=== PATIENT | male | born 1955 | race Caucasian/White ===

== ENCOUNTER → 2023-08-23 13:27 | Outpatient (REF) | payer MEDICARE, SELFPAY | LOC: HWRAD 13:27 | PROVIDERS: ATTENDING PHYSICIAN Nurse Practitioner Adult Health | DX: M54.2 Cervicalgia (principal); M54.50 Low back pain, unspecified; S23.9XXA Sprain of unspecified parts of thorax, initial encounter | CPT/HCPCS: 72040; 72072; 72110 ==

== ENCOUNTER 2024-07-24 09:57 | Emergency (ER) | payer MEDICARE, SELFPAY ==
--- NOTE | 2024-07-24 10:19 | ED.GENMED ---
History of Present Illness
General
Chief Complaint: Abdominal Pain
Source: patient
Exam Limitations: none
Time Seen by Provider: 07/24/24 10:10
Nursing documentation reviewed up to this point in time: agreed with
History of Present Illness
History of Present Illness:
Patient is a 68 male who presents to the ER for evaluation. Patient was awoken this morning at 5 AM with left-sided flank pain which radiates to his left abdomen. He has a history of chronic back issues but this feels different. He was nauseous
and did vomit twice with this. He does feel little constipated. He has moved recently but not as much as normal. He has not take anything for pain. He reports pain is mostly constant does become more intense at times. He denies any radiation to
his groin or testicle. Denies any hematuria
Past History
Past History
ED Past Medical History: Hypercholesterolemia (Borderline) and Other (Anxiety, elevated hemoglobin A1c)
ED Past Surgical History: Orthopedic
Social History
Tobacco: Non-smoker
Employment: Employed
Family History
Family History: CAD
Review of Systems
Review of Systems
Allergies reviewed?: Yes
All Other Systems: ROS reviewed and negative except as documented in HPI and ROS
Constitutional: Reports no symptoms
Respiratory: Reports no symptoms
Cardiac: Reports no symptoms
ABD/GI: Reports abdominal pain, nausea, vomiting and constipated; Denies diarrhea
: Reports no symptoms
Musculoskeletal: Reports back pain
Skin: Reports no symptoms
Neurological: Reports no symptoms
Psychiatric: Reports no symptoms
Phy Exam
General Physical Exam
General Presentation: no apparent distress
General age: appears stated age
General Skin: warm and dry
General Habitus: normal
General Mental: alert
General Hydration: appears well hydrated
Cardiovascular Exam
Cardiovascular Exam: regular rate/rhythm, no murmur and normal peripheral pulses
Pulmonary Exam
Pulmonary Exam: lungs clear and no respiratory distress
Gastrointestinal Exam
Gastrointestinal Exam: normal bowel sounds, non tender and soft
Neurological Exam
Neurological Exam: alert and oriented x3
Musculoskeletal Exam
Musculoskeletal Exam: full ROM
Skin Exam
Skin Exam: normal color and warm/dry
Psychiatric Exam
Psychiatric Exam: normal mood/affect
Course
Orders/Labs/Results
Orders:
Orders
07/24/24 10:18
CT Abd/pel Without Iv Or Oral Urgent
Comment:
Reason For Exam: left flank pain
IV Insert/Care/Rem.- Treatment PRN
0.9% Sodium Chloride 1000 ml [Nss] 1,000 ml IV BOLUS
Ketorolac [Toradol] 15 mg IV NOW STA
07/24/24 10:20
Vital Signs- Treatment ONCE
Frequency: Once
07/24/24 10:33
Complete Blood Count/With Diff Urgent
Comprehensive Metabolic Panel Urgent
Lipase Urgent
07/24/24 10:59
HYDROmorphone [Dilaudid] 1 mg .ROUTE .STK-MED ONE
HYDROmorphone [Dilaudid] 1 mg IV NOW STA
07/24/24 11:35
Urinalysis Reflex To Culture Urgent
Date Specimen was Collected: 07/24/24
Time Specimen was Collected: 11:27
Urine Microscopic Reflex Cult Urgent
Urine Culture Urgent
HANNY Source: U
Specimen Description:
Date Specimen was Collected: 07/24/24
Time Specimen was Collected: 11:27
Abnormal Lab Results
07/24/24 07/24/24
10:33 11:35
MCH 32.6 H pg
(27.0-31.0)
Absolute Lymphs (auto) 0.9 L 10^3/uL
(1.2-3.4)
Neutrophils % 78.9 H %
(42.2-75.2)
Lymphocytes % 15.1 L %
(20.5-51.1)
Creatinine 1.4 H mg/dL
(0.7-1.3)
Glucose 150 H mg/dl
(70-99)
Total Bilirubin 1.5 H mg/dl
(0.2-1.3)
Ur Occult Blood Reflex 4+ A
(Negative)
Leukocyte Esterase Rfl 1+ A
(Negative)
Urine RBC >100 A /HPF
(0-2)
Urine Albumin (Reflex) 2+ A
(Neg - Trace)
07/24/24 10:33
07/24/24 10:33
Vital Signs
Initial and Last Documented VS:
Initial Vital Signs
Temp Pulse Resp
98.0 F 79 20
07/24/24 09:59 07/24/24 09:59 07/24/24 09:59
Last Documented Vital Signs
Temp Pulse Resp BP Pulse Ox
98.0 F 79 20 179/90 99
07/24/24 09:59 07/24/24 10:56 07/24/24 10:56 07/24/24 10:56 07/24/24 10:56
MDM/Problems Addressed
MDM/Problems Addressed:
Patient presented with left flank pain rating to her abdomen. Patient was medicated for pain feeling better. CAT scan shows a 4.5 mm distal left calculus with mild to moderate left hydro no obvious UTI. Will DC with Motrin, pain medicine and
outpatient urology follow-up. Patient denies any fevers and is afebrile creatinine 1.4.
*Radiology
Radiology exam reviewed: radiology read reviewed
*Critical Care Note
Total Time (30-74mins, 75-104mins- exclusive of procedures): Not Applicable
ED Attending Note
-
Portions of this chart may have been created with voice recognition software.� Occasional wrong word or��sound alike� substitutions may have occurred due to the inherent limitations of voice recognition software.
Discharge Plan
Departure
Patient Disposition: Home (Routine Discharge)
Date of Disposition: 07/24/24
Time of Disposition: 12:18
Patient with high blood pressure during this ER visit?: Yes
Condition: Fair
Covid-19: Not Applicable
Discharge Problem:
renal colic
Instructions: Kidney stones in adults, BLOOD PRESSURE
Prescriptions:
New
oxycodone 5 mg tablet
5 mg PO Q8H PRN (Reason: Pain) Qty: 10 0RF
tamsulosin [Flomax] 0.4 mg capsule
0.4 mg PO DAILY Qty: 7 0RF
No Action
pantoprazole 40 MG tablet,delayed release (DR/EC)
40 mg PO BID Qty: 30 1RF
Referrals:
Elias Glover MD [Active] -
Nely Anne CRNP [Family Provider] -
Activity Restrictions/Additional Instructions:
As discussed stay well-hydrated. You may take ibuprofen for discomfort however if needed a prescription for oxycodone was sent to the pharmacy please take as directed. In addition a prescription for Flomax was also sent. Please start today.
It is recommended that you take a laxative while taking narcotics as this may cause constipation. Also no driving or drink alcohol while taking this medication.
Please follow-up with urology give the office a call today or tomorrow to make an appointment in the next several days. Return if any worsening of symptoms if increased pain fever chills or any further concerns.
Interventions
Interventions:
*Risk Screen - Suicide Last Done: 07/24/24 10:55
*General Assessment Last Done: 07/24/24 10:55
*Neglect/Abuse Screening Last Done: 07/24/24 10:55
*ED- Fall Risk Assessment Last Done: 07/24/24 10:55
*Nursing Disposition Last Done: 07/24/24 13:23
UT-Xoyjwi-Vpnpfvrvqh Assessment Last Done: 07/24/24 10:57
Discharge Date and Time
Discharge Date/Time: 07/24/24 13:24
Print Language: PALAUAN
[2024-07-24] MEDS: TORADOL 15 MG IV (10:32)
[2024-07-24] MEDS: NSS 1000 IV (10:32)
[2024-07-24 10:42] LABS: % Basophils 0.5 % (0-2); % Eosinophils 0.2 % (0-6); % Immature Granulocytes 0.3 % (0-0.5); % Lymphocytes 15.1 % (20.5-51.1); % Neutrophils 78.9 % (42.2-75.2); Absolute Lymphocytes 0.9 10^3/uL (1.2-3.4); Absolute Monocytes 0.3 10^3/uL (0.1-0.6); Absolute Neutrophils 4.8 10^3/uL (1.4-6.5); Hematocrit 46.9 % (39.0-52.0); Mean Corp Hgb Conc. 36.2 g/dL (33.0-37.0); Mean Corpuscular Hgb 32.6 pg (27.0-31.0); Mean Corpuscular Volume 89.8 fL (80.0-94.0); Mean Platelet Volume 8.9 fL (7.4-10.4); Nucleated Red Blood Cells % 0 % (-); Platelet Count 214 10^3/uL (130-400); Red Blood Cell Count 5.22 10^6/uL (4.70-6.10); Red Cell Dist. Width 12.5 % (11.5-14.5)
[2024-07-24 10:54] VITALS: BMI 32.1
[2024-07-24 10:56] VITALS: BP 179/90
[2024-07-24 10:56] LABS: ALT (SGPT) 50 U/L (0-50); AST (SGOT) 44 U/L (17-59); Blood Urea Nitrogen 17 mg/dl (9-20); Calcium 9.7 mg/dl (8.4-10.2); Carbon Dioxide 25 mmol/L (22-30); Chloride 106 mmol/L (98-107); Estimated Creatinine Clearance 63 ml/min; Glucose 150 mg/dl (70-99); Lipase 135 U/L (23-300); Potassium 4.8 mmol/L (3.5-5.1); Sodium 142 mmol/L (135-145); Total Bilirubin 1.5 mg/dl (0.2-1.3); Total Protein 8.1 g/dl (6.3-8.2); eGFR 55.09
[2024-07-24] MEDS: DILAUDID 1 MG IV (11:00)
[2024-07-24 11:36] LABS: Alkaline Phosphatase 66 U/L (38-126)
[2024-07-24 11:52] LABS: Urine Albumin 2+ (Neg - Trace); Urine Bilirubin Negative (Negative); Urine Character Clear (Clear); Urine Color Yellow; Urine Glucose Negative (Negative); Urine Ketone Negative (Negative); Urine Leukocyte 1+ (Negative); Urine Nitrite Negative (Negative); Urine Occult Blood 4+ (Negative); Urine Specific Gravity 1.025 (<1.030); Urine Urobilinogen 1+ (Neg - 1+)
[2024-07-24 13:08] LABS: Urine Mucus Many
[2024-07-24 13:09] LABS: Urine Amorphous Seen; Urine Squamous Cell 0-2 /LPF (Few); Urine Urothelial Cell 0-2 /LPF (FEW)
[2024-07-24 13:11] LABS: Urine Calcium Oxalate Crystals Seen
[2024-07-24 13:12] LABS: Urine Red Blood Cell >100 /HPF (0-2)
== END 2024-07-24 13:24 | disposition home or self-care (01) ==
LOC: EMR 09:57
PROVIDERS: Nurse Practitioner; EMERGENCY PHYSICIAN Student in an Organized Health Care Education/Training Program; FAMILY PHYSICIAN Nurse Practitioner Adult Health
DX: N13.2 Hydronephrosis with renal and ureteral calculous obstruction (principal); R03.0 Elevated blood-pressure reading, without diagnosis of hypertension
CPT/HCPCS: 99285; 96374; 96375; 96361; 74176; 80053; 81003; 81015; 83690; 85025; 87086